=== PATIENT | female | born 1965 | race Asian ===

== ENCOUNTER 2016-11-19 06:15 | Day surgery (SDC) | payer OTHER ==
[~2016-11-19] VITALS: Ht 157.5 cm; Wt 57.2 kg
[2016-11-19] MEDS ORDERED: ACETAMINOPHEN/CODEINE 300/30MG 1 TAB PO PRN (07:05)
[2016-11-19] MEDS ORDERED: IBUPROFEN 800 MG TAB PO PRN (07:05)
[2016-11-19] MEDS ORDERED: MORPHINE SULFATE 4 MG/ML SYR IM/IVP PRN (07:05)
[2016-11-19] MEDS ORDERED: ONDANSETRON 4 MG/2 ML VIAL IVP PRN ×2 (07:05→08:50)
[2016-11-19 07:15] LABS: BASOPHILS # (AUTO) 0.1 K/uL (0.00-0.22); BASOPHILS % (AUTO) 1.5 % (0.0-2.0); EOSINOPHILS # (AUTO) 0.1 K/uL (0-0.4); EOSINOPHILS % (AUTO) 1.5 % (0.0-4.0); HEMATOCRIT 37.6 % (36-48); HEMOGLOBIN 12.8 g/dL (12.0-16.0); LYMPHOCYTES # (AUTO) 1.2 K/uL (2.5-16.5); LYMPHOCYTES % (AUTO) 23.4 % (20.5-51.1); MEAN CORPUSCULAR HEMOGLOBIN 30 pg (27-31); MEAN CORPUSCULAR HGB CONC 34 g/dL (33-37); MEAN CORPUSCULAR VOLUME 89 fL (80-94); MONOCYTES # (AUTO) 0.3 K/uL (0.8-1.0); MONOCYTES % (AUTO) 5.7 % (1.7-9.3); NEUTROPHILS # (AUTO) 3.3 K/uL (1.8-7.7); NEUTROPHILS % (AUTO) 67.9 % (42.2-75.2); PLATELET COUNT (AUTO) 180 K/uL (140-450); RED BLOOD CELL COUNT(AUTO) 4.23 MIL/uL (4.20-5.40); RED CELL DISTRIBUTION WIDTH 11.8 % (11.6-13.7)
[2016-11-19 07:20] LABS: ANION GAP 10.2 (8-16); CARBON DIOXIDE 30.4 mmol/L (21-32); CREATININE 0.6 mg/dL (0.6-1.3); POTASSIUM 4.6 mmol/L (3.5-5.1)
[2016-11-19 07:26] LABS: ALBUMIN 3.9 g/dL (3.4-5.0); TOTAL BILIRUBIN 0.5 mg/dL (0.0-1.0); TOTAL PROTEIN, SERUM 7.6 g/dL (6.4-8.2)
[2016-11-19] MEDS ORDERED: SUMA100T1 PO (08:11)
[2016-11-19] MEDS ORDERED: PROPOFOL 200 MG/20 ML VIAL IV ONE (08:25)
[2016-11-19] MEDS ORDERED: fentaNYL 0.05 MG/ML VIAL ONE (08:29)
[2016-11-19] MEDS ORDERED: MEPERIDINE 25 MG/ML SYR ONE (08:29)
[2016-11-19] MEDS ORDERED: MIDAZOLAM 2 MG/2 ML VIAL ONE (08:29)
[2016-11-19] MEDS ORDERED: LACTATED RINGERS 1,000 ML IV SCH (08:48)
[2016-11-19] MEDS ORDERED: diphenhydrAMINE 50 MG/ML VIAL IVP PRN (08:50)
[2016-11-19] MEDS ORDERED: HYDROmorphone 1 MG/ML AMP IVP PRN (08:50)
[2016-11-19] MEDS ORDERED: MEPERIDINE 25 MG/ML SYR IVP PRN (08:50)
== END 2016-11-19 11:15 | disposition home or self-care (01) ==
LOC: MMU 06:15 → MDS 06:15
PROVIDERS: ATTEND Obstetrics & Gynecology
DX: N95.0 Postmenopausal bleeding (principal); N92.1 Excessive and frequent menstruation with irregular cycle; I10 Essential (primary) hypertension; G43.909 Migraine, unspecified, not intractable, without status migrainosus; Z72.0 Tobacco use
CPT/HCPCS: 36415; 58120; 80053; 85025; 93005; J2175; J2250; J2704; J3010; J7120